=== PATIENT | female | born 1985 | race Caucasian/White ===

== ENCOUNTER 2018-08-01 12:13 | Emergency (ER) | payer OTHER ==
[~2018-08-01] VITALS: Ht 170.2 cm; Wt 50.0 kg
[~2018-08-01 12:13] MED LIST: HYDR-3240 PO; IBUP-1222 PO; PNV91TAB3 PO
[2018-08-01 15:06] VITALS: BP 103/85
[2018-08-01] MEDS ORDERED: GADOBUTROL 7.5 MMOL/7.5 ML PFS ONE (19:57)
== END 2018-08-01 16:05 | disposition home or self-care (01) ==
LOC: ED 15:55
DX: M79.661 Pain in right lower leg (principal); M79.662 Pain in left lower leg
CPT/HCPCS: 73720; 99284; A9585

== ENCOUNTER 2019-11-20 19:35 | Emergency (ER) | payer OTHER ==
[~2019-11-20] VITALS: Ht 170.2 cm; Wt 54.1 kg
--- NOTE | 2019-11-20 20:05 | NUR ---
multiple complaints from home. 1 week no appetite. chills. nausea yesterday, vomit x1. diarrhea x several days. muscles aches and pains. got flu shot. no diff breathing no cough. c/o weakness and trouble walking and a little dizzy. call [facility] in reach daniele blanco.
[2019-11-20] MEDS ORDERED: SODIUM CHLORIDE 0.9% 1,000ML IVBOLUS ONE (20:30)
[2019-11-20] MEDS ORDERED: ONDANSETRON 2MG/ML, 2ML IVPush ONE (20:30)
[2019-11-20] MEDS ORDERED: SODIUM CHLORIDE FLUSH 10ML SYR IVF ONE (20:30)
[2019-11-20] MEDS ORDERED: ONDANSETRON 2MG/ML, 2ML ONE (20:32)
--- NOTE | 2019-11-20 20:38 | NUR ---
lab at bedside meds per mar.
[2019-11-20 20:53] LABS: BASOPHILS # (AUTO) 0.02 x10^3/uL (0-0.1); BASOPHILS % (AUTO) 0 % (0-1); EOSINOPHILS % (AUTO) 0 % (1-7); LYMPHOCYTES # (AUTO) 0.76 x10^3/uL (1-3.4); LYMPHOCYTES % (AUTO) 17 % (22-44); MD NO; MEAN CORPUSCULAR HEMOGLOBIN 31.5 pg (27.0-34.8); MEAN CORPUSCULAR HGB CONC 33.7 g/dL (32.4-35.8); MEAN CORPUSCULAR VOLUME 93.6 fL (80-100); MEAN PLATELET VOLUME 8.4 fL (7.4-10.4); MONOCYTES # (AUTO) 0.38 x10^3/uL (0.2-0.8); MONOCYTES % (AUTO) 9 % (2-9); NEUTROPHILS # (AUTO) 3.23 x10^3/uL (1.8-6.8); NEUTROPHILS % (AUTO) 74 % (42-75); PLATELET COUNT 251 x10^3/uL (130-400); RED BLOOD COUNT 4.91 x10^6/uL (3.82-5.3); RED CELL DISTRIBUTION WIDTH 12.8 % (9.6-15.2)
[2019-11-20 20:54] LABS: RAPID INFLUENZA A Negative (Negative); RAPID INFLUENZA B Negative (Negative)
[2019-11-20 20:57] LABS: ALANINE AMINOTRANSFERASE 30 U/L (12-78); ALBUMIN 3.5 g/dL (3.4-5.0); ANION GAP 6 mmol/L (5-15); CALCIUM 8.1 mg/dL (8.5-10.1); CHLORIDE 108 mmol/L (98-107); CREATININE 0.57 mg/dL (0.55-1.02)
[2019-11-20 21:00] LABS: ALKALINE PHOSPHATASE 50 U/L (45-117); BILIRUBIN,TOTAL 0.7 mg/dL (0.2-1.0); TOTAL PROTEIN 6.8 g/dL (6.4-8.2)
[2019-11-20] MEDS ORDERED: POTASSIUM CHLORIDE 20 MEQ TAB.ER.PRT ONE (21:18)
[2019-11-20 21:25] VITALS: BP 92/54
--- NOTE | 2019-11-20 21:29 | NUR ---
Patient/Caregiver given discharge instructions and they have confirmed that they understand the instructions. Patient ambulatory with steady gait.
[2019-11-20] MEDS ORDERED: POTASSIUM CHLORIDE 20 MEQ TAB.ER.PRT PO ONE (21:30)
== END 2019-11-20 21:31 | disposition home or self-care (01) ==
LOC: ED 21:16
DX: R11.2 Nausea with vomiting, unspecified (principal); B34.9 Viral infection, unspecified; E87.6 Hypokalemia; M79.10 Myalgia, unspecified site
CPT/HCPCS: 36415; 80053; 83605; 85025; 87400; 96361; 96374; 99283; J2405; J7030